=== PATIENT | male | born 2000 | race Caucasian/White ===

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

== ENCOUNTER 2019-03-12 18:53 | Emergency (ER) | payer MEDICAID ==
[~2019-03-12] VITALS: Ht 172.7 cm; Wt 62.0 kg
[~2019-03-12 18:53] MED LIST: AZIT500T9 PO; MONT10TA21 PO
[2019-03-12] MEDS ORDERED: GUAI600T45 PO (20:11)
[2019-03-12 20:23] VITALS: BP 126/82
== END 2019-03-12 20:25 | disposition home or self-care (01) ==
LOC: ER 18:54
DX: R05 Cough (principal); J45.909 Unspecified asthma, uncomplicated; Z88.8 Allergy status to other drugs, medicaments and biological substances; Z79.899 Other long term (current) drug therapy; Z79.2 Long term (current) use of antibiotics
CPT/HCPCS: 99282

== ENCOUNTER 2019-06-08 06:44 | Emergency (ER) | payer MEDICAID ==
[~2019-06-08] VITALS: Ht 172.7 cm; Wt 77.3 kg
[~2019-06-08 06:44] MED LIST changes: +GUAI600T45 PO
[2019-06-08 06:56] VITALS: BP 110/71
[2019-06-08] MEDS ORDERED: acetaminophen 325mg tablet PO ONE (07:40)
== END 2019-06-08 07:52 | disposition home or self-care (01) ==
LOC: ER 06:44
DX: J06.9 Acute upper respiratory infection, unspecified (principal); J45.909 Unspecified asthma, uncomplicated; F31.9 Bipolar disorder, unspecified; Z88.8 Allergy status to other drugs, medicaments and biological substances; Z79.899 Other long term (current) drug therapy
CPT/HCPCS: 99282

== ENCOUNTER 2020-06-14 12:08 | Emergency (ER) | payer MEDICAID ==
[~2020-06-14] VITALS: Ht 172.7 cm; Wt 69.0 kg
== END 2020-06-14 13:42 | disposition home or self-care (01) ==
LOC: ER 12:08
DX: R06.02 Shortness of breath (principal); R43.8 Other disturbances of smell and taste; R42 Dizziness and giddiness; R51.9 Headache, unspecified; Z20.822 Contact with and (suspected) exposure to COVID-19; J45.909 Unspecified asthma, uncomplicated; F31.9 Bipolar disorder, unspecified; Z88.8 Allergy status to other drugs, medicaments and biological substances; Z79.2 Long term (current) use of antibiotics; Z79.899 Other long term (current) drug therapy
CPT/HCPCS: 36415; 87635; 99283

== ENCOUNTER 2020-07-04 12:54 | Emergency (ER) | payer MEDICAID ==
[~2020-07-04] VITALS: Ht 172.7 cm; Wt 85.5 kg
--- NOTE | 2020-07-04 14:19 | NUR ---
pt seen pmd yesterday and told about chronic pain he "just deals with" 01/10 s/p tumor removal 9 years ago. scheduled appointment for 1 month out.
[2020-07-04 14:21] VITALS: BP 123/72
== END 2020-07-04 15:20 | disposition home or self-care (01) ==
LOC: ER 12:54
DX: M79.601 Pain in right arm (principal); J45.909 Unspecified asthma, uncomplicated; F31.9 Bipolar disorder, unspecified; Z88.8 Allergy status to other drugs, medicaments and biological substances; Z79.2 Long term (current) use of antibiotics; Z79.899 Other long term (current) drug therapy
CPT/HCPCS: 73060; 99283

== ENCOUNTER 2020-07-12 08:53 | Emergency (ER) | payer MEDICAID ==
[~2020-07-12] VITALS: Ht 172.7 cm; Wt 85.5 kg
[2020-07-12 09:07] VITALS: BP 122/69
== END 2020-07-12 10:07 | disposition home or self-care (01) ==
LOC: ER 08:55
DX: R07.81 Pleurodynia (principal); J02.9 Acute pharyngitis, unspecified; R05 Cough; J45.909 Unspecified asthma, uncomplicated; F31.9 Bipolar disorder, unspecified; Z88.8 Allergy status to other drugs, medicaments and biological substances; Z79.2 Long term (current) use of antibiotics; Z79.899 Other long term (current) drug therapy
CPT/HCPCS: 99282

== ENCOUNTER 2021-07-29 11:45 | Emergency (ER) | payer MEDICAID ==
[~2021-07-29] VITALS: Ht 172.7 cm; Wt 86.4 kg
[2021-07-29 11:52] VITALS: BP 127/68
[2021-07-29] MEDS ORDERED: acetaminophen 325mg tablet PO ONE (11:55)
== END 2021-07-29 15:29 | disposition home or self-care (01) ==
LOC: ER 11:46
DX: S06.0X9A Concussion with loss of consciousness of unspecified duration, initial encounter (principal); J02.9 Acute pharyngitis, unspecified; R42 Dizziness and giddiness; J45.909 Unspecified asthma, uncomplicated; F31.9 Bipolar disorder, unspecified; Z88.8 Allergy status to other drugs, medicaments and biological substances; Z79.2 Long term (current) use of antibiotics; Z79.899 Other long term (current) drug therapy; X58.XXXA Exposure to other specified factors, initial encounter; Y93.89 Activity, other specified; Y92.89 Other specified places as the place of occurrence of the external cause; Y99.8 Other external cause status
CPT/HCPCS: 99283

== ENCOUNTER 2021-08-01 09:28 | Emergency (ER) | payer MEDICAID ==
[~2021-08-01] VITALS: Ht 172.7 cm; Wt 86.0 kg
[2021-08-01 09:39] VITALS: BP 106/73
--- NOTE | 2021-08-01 10:41 | NUR ---
STAPLE X1 REMOVED. PT TOLERATED WELL WITH NO COMPLAINTS. ABX OINT APPLIED
== END 2021-08-01 10:46 | disposition home or self-care (01) ==
LOC: ER 09:28
DX: S01.01XD Laceration without foreign body of scalp, subsequent encounter (principal); Z48.00 Encounter for change or removal of nonsurgical wound dressing; J45.909 Unspecified asthma, uncomplicated; F41.9 Anxiety disorder, unspecified; Z88.2 Allergy status to sulfonamides; Z88.8 Allergy status to other drugs, medicaments and biological substances; X58.XXXD Exposure to other specified factors, subsequent encounter; Z88.6 Allergy status to analgesic agent
CPT/HCPCS: 99281

== ENCOUNTER 2021-09-19 15:22 | Emergency (ER) | payer MEDICAID ==
[~2021-09-19] VITALS: Ht 172.7 cm; Wt 90.0 kg
[2021-09-19 16:07] VITALS: BP 138/81
[2021-09-19] MEDS ORDERED: dexamethasone sod phosphate 10mg/ml inj IM STA (17:14)
[2021-09-19] MEDS ORDERED: amox tr/potassium clavulanate 875/125mg TAB PO ONE (17:15)
[2021-09-19] MEDS ORDERED: AMOX-117 PO (17:21)
== END 2021-09-19 17:41 | disposition home or self-care (01) ==
LOC: ER 15:22
DX: H66.91 Otitis media, unspecified, right ear (principal); J45.909 Unspecified asthma, uncomplicated; F31.9 Bipolar disorder, unspecified; Z88.8 Allergy status to other drugs, medicaments and biological substances
CPT/HCPCS: 96372; 99283; J1100

== ENCOUNTER 2021-10-19 12:15 | Emergency (ER) | payer MEDICAID ==
[~2021-10-19] VITALS: Ht 172.7 cm; Wt 97.8 kg
[2021-10-19] MEDS ORDERED: CYCL-1 PO (15:19)
[2021-10-19] MEDS ORDERED: ketorolac trometh inj. 60 MG/2 ML VIAL IM ONE (15:20)
[2021-10-19 16:47] VITALS: BP 138/80
== END 2021-10-19 16:50 | disposition home or self-care (01) ==
LOC: ER 12:15
DX: G89.29 Other chronic pain (principal); M54.50 Low back pain, unspecified; M53.3 Sacrococcygeal disorders, not elsewhere classified; J45.909 Unspecified asthma, uncomplicated; Z59.00 Homelessness unspecified; Z60.2 Problems related to living alone; Z88.8 Allergy status to other drugs, medicaments and biological substances; Z79.2 Long term (current) use of antibiotics; Z79.899 Other long term (current) drug therapy
CPT/HCPCS: 96372; 99283; J1885

== ENCOUNTER 2022-05-22 10:02 | Emergency (ER) | payer MEDICAID ==
[~2022-05-22] VITALS: Ht 170.2 cm; Wt 112.0 kg
[~2022-05-22 10:02] MED LIST changes: +CYCL-1 PO; +NAPR-56 PO
[2022-05-22 10:25] VITALS: BP 137/77
[2022-05-22] MEDS ORDERED: CLIN30GE2 TOP (11:08)
[2022-05-22] MEDS ORDERED: DOXY-1 PO (11:08)
== END 2022-05-22 11:37 | disposition home or self-care (01) ==
LOC: ER 10:02
DX: R23.8 Other skin changes (principal); R22.41 Localized swelling, mass and lump, right lower limb; J45.909 Unspecified asthma, uncomplicated; G89.29 Other chronic pain; F31.9 Bipolar disorder, unspecified; Z59.00 Homelessness unspecified; Z60.2 Problems related to living alone; Z88.8 Allergy status to other drugs, medicaments and biological substances; Z79.899 Other long term (current) drug therapy
CPT/HCPCS: 99283

== ENCOUNTER 2022-09-20 10:14 | Emergency (ER) | payer MEDICAID ==
[~2022-09-20] VITALS: Ht 172.7 cm; Wt 117.9 kg
[~2022-09-20 10:14] MED LIST changes: +CLIN30GE2 TOP; +MONT-48 PO; -MONT10TA21 PO
[2022-09-20 10:20] VITALS: BP 133/77
[2022-09-20] MEDS ORDERED: LIDO-15 TD (11:30)
[2022-09-20] MEDS ORDERED: ketorolac trometh inj. 60 MG/2 ML VIAL IM ONE (11:30)
== END 2022-09-20 12:04 | disposition home or self-care (01) ==
LOC: ER 10:14
DX: G89.29 Other chronic pain (principal); M54.50 Low back pain, unspecified; J45.909 Unspecified asthma, uncomplicated; Z88.8 Allergy status to other drugs, medicaments and biological substances; Z91.018 Allergy to other foods; Z59.00 Homelessness unspecified
CPT/HCPCS: 96372; 99283; J1885

== ENCOUNTER 2022-09-28 19:25 | Emergency (ER) | payer MEDICAID ==
[~2022-09-28] VITALS: Ht 170.2 cm; Wt 117.7 kg
[~2022-09-28 19:25] MED LIST changes: +LIDO-15 TD
[2022-09-28 19:43] VITALS: BP 135/94
== END 2022-09-28 22:04 | disposition home or self-care (01) ==
LOC: ER 19:26
DX: M25.511 Pain in right shoulder (principal); J45.909 Unspecified asthma, uncomplicated; G89.29 Other chronic pain; M54.9 Dorsalgia, unspecified; F31.9 Bipolar disorder, unspecified; Z88.8 Allergy status to other drugs, medicaments and biological substances; Z88.5 Allergy status to narcotic agent; Z88.6 Allergy status to analgesic agent; Z79.899 Other long term (current) drug therapy
CPT/HCPCS: 73030; 99283

== ENCOUNTER 2022-12-03 14:22 | Emergency (ER) | payer MEDICAID ==
[~2022-12-03] VITALS: Ht 172.7 cm; Wt 114.6 kg
[2022-12-03 14:33] VITALS: BP 137/84; PULSE 91; RESP 18; TEMP 98.7; O2SAT 96
== END 2022-12-03 15:23 | disposition home or self-care (01) ==
LOC: ER 14:23
DX: M96.89 Other intraoperative and postprocedural complications and disorders of the musculoskeletal system (principal); F31.9 Bipolar disorder, unspecified; J45.909 Unspecified asthma, uncomplicated; Z88.8 Allergy status to other drugs, medicaments and biological substances; Z91.018 Allergy to other foods; Z79.2 Long term (current) use of antibiotics; Z79.899 Other long term (current) drug therapy
CPT/HCPCS: 99284

== ENCOUNTER 2023-06-12 09:26 | Emergency (ER) | payer MEDICAID ==
[~2023-06-12] VITALS: Ht 172.7 cm; Wt 116.0 kg
[2023-06-12 10:21] VITALS: BP 121/77; PULSE 105; RESP 18; TEMP 99.1; O2SAT 96
[2023-06-12] MEDS ORDERED: AMOX-101 PO (10:28)
[2023-06-12] MEDS ORDERED: PSEU120T56 PO (10:28)
== END 2023-06-12 10:52 | disposition home or self-care (01) ==
LOC: ER 09:26
DX: H66.91 Otitis media, unspecified, right ear (principal); J02.9 Acute pharyngitis, unspecified; J45.909 Unspecified asthma, uncomplicated; F31.9 Bipolar disorder, unspecified; Z72.89 Other problems related to lifestyle; Z59.00 Homelessness unspecified; Z88.8 Allergy status to other drugs, medicaments and biological substances; Z79.2 Long term (current) use of antibiotics; Z79.899 Other long term (current) drug therapy
CPT/HCPCS: 99283

== ENCOUNTER 2023-07-27 16:31 | Emergency (ER) | payer MEDICAID ==
[~2023-07-27] VITALS: Ht 172.7 cm; Wt 111.2 kg
[~2023-07-27 16:31] MED LIST changes: +PSEU120T56 PO
[2023-07-27] MEDS ORDERED: HYDR25SU32 RC (19:24)
[2023-07-27 19:43] VITALS: BP 145/79; PULSE 99; RESP 16; TEMP 98.3; O2SAT 97
== END 2023-07-27 19:46 | disposition home or self-care (01) ==
LOC: ER 16:33
DX: K62.5 Hemorrhage of anus and rectum (principal); J45.909 Unspecified asthma, uncomplicated; G89.29 Other chronic pain; M54.9 Dorsalgia, unspecified; F31.9 Bipolar disorder, unspecified; Z79.899 Other long term (current) drug therapy
CPT/HCPCS: 99283

== ENCOUNTER 2023-10-04 09:27 | Outpatient (CLI) | payer MEDICAID ==
[~2023-10-04 09:27] MED LIST changes: +HYDR25SU32 RC
== END 2023-10-04 23:59 | disposition home or self-care (01) ==
LOC: MRI 09:27
PROVIDERS: ATTEND Physical Medicine & Rehabilitation
DX: M47.26 Other spondylosis with radiculopathy, lumbar region (principal); M51.16 Intervertebral disc disorders with radiculopathy, lumbar region; M54.59 Other low back pain; M54.50 Low back pain, unspecified
CPT/HCPCS: 72148

== ENCOUNTER 2024-05-22 14:36 | Emergency (ER) | payer MEDICAID ==
[~2024-05-22] VITALS: Ht 172.7 cm; Wt 107.0 kg
[2024-05-22 14:50] VITALS: BP 133/87; PULSE 107; TEMP 97.2; O2SAT 97
[2024-05-22 15:00] VITALS: RESP 16
[2024-05-22] MEDS ORDERED: FLUT16SP2 BOTHNARES (15:12)
[2024-05-22] MEDS ORDERED: PSEU-303 PO (15:12)
== END 2024-05-22 15:31 | disposition home or self-care (01) ==
LOC: ER 14:36
DX: B34.8 Other viral infections of unspecified site (principal); J45.909 Unspecified asthma, uncomplicated; F31.9 Bipolar disorder, unspecified; Z91.010 Allergy to peanuts; Z88.8 Allergy status to other drugs, medicaments and biological substances
CPT/HCPCS: 99282

== ENCOUNTER 2024-06-12 00:33 | Emergency (ER) | payer MEDICAID ==
[~2024-06-12] VITALS: Ht 172.7 cm; Wt 106.4 kg
[~2024-06-12 00:33] MED LIST changes: +FLUT16SP2 BOTHNARES; +PSEU-303 PO
[2024-06-12] MEDS ORDERED: IBUP-1984 PO (00:58)
[2024-06-12] MEDS ORDERED: ACET-2615 PO (00:58)
[2024-06-12] MEDS: acetaminophen 325mg tablet PO ONE (01:10)
[2024-06-12] MEDS: ketorolac trometh 15mg/ml vial 15 MG/ML ML IM ONE (01:10)
[2024-06-12 01:19] VITALS: BP 134/84; PULSE 53; TEMP 98.7; O2SAT 100
[2024-06-12 01:23] VITALS: RESP 15
== END 2024-06-12 01:28 | disposition home or self-care (01) ==
LOC: ER 00:33
DX: M26.629 Arthralgia of temporomandibular joint, unspecified side (principal); J45.909 Unspecified asthma, uncomplicated; F31.9 Bipolar disorder, unspecified; Z88.8 Allergy status to other drugs, medicaments and biological substances; Z91.010 Allergy to peanuts
CPT/HCPCS: 96372; 99283; J1885